=== PATIENT | female | born 1995 | race Caucasian/White ===

== ENCOUNTER 2017-07-19 14:36 | Emergency (ER) | payer MEDICAID ==
[~2017-07-19] VITALS: Ht 154.9 cm; Wt 54.4 kg
[2017-07-19 15:31] VITALS: BP 133/78
== END 2017-07-19 15:44 | disposition home or self-care (01) ==
LOC: ER 14:42
DX: N89.8 Other specified noninflammatory disorders of vagina (principal); N92.0 Excessive and frequent menstruation with regular cycle